=== PATIENT | female | born 1950 | race Caucasian/White ===

== ENCOUNTER 2017-01-29 09:15 | Day surgery (SDC) | payer MEDICARE ==
[~2017-01-29] VITALS: Ht 162.6 cm; Wt 70.8 kg
[~2017-01-29 09:15] MED LIST: BROMELAINS500 MG PO; CALCIUM 500 +1 EAC4 PO; CLARITIN10 M2 PO; CO Q-10100 MG PO; DOXYCYCLINE HY100 MG PO; EFFEXOR XR37.5 MG PO; FISH OIL 1,0001 EAC3 PO; FOLIC ACID1 MG PO; GARLIC1000 MG PO; GLUCOSAMINE CH1 EAC7 PO; HYDROCHLOROTHIA25 MG PO; KLOR-CON M2020 MEQ PO; LEVOTHYROXINE25 MCG PO; METHOTREXATE2.5 MG PO; MILLIPRED5 MG PO; NEURONTIN300 MG PO; OMEGA-3 FISH O1 EAC2 PO; PLAQUENIL200 MG PO; PRINIVIL5 MG PO; REFRESH OPTIVE1 EAC1 OPTH; RESTASIS1 DROP OP; TOBRADEX EYE DRO5 ML OPTH; VITAMIN C1000 MG PO; VITAMIN D32000 UNIT PO
== END 2017-01-29 11:27 | disposition home or self-care (01) ==
LOC: OPS 09:15 → DSVR 09:15 → DS 10:15 → OPS 11:27
PROC: 08RJ3JZ Replacement of Right Lens with Synthetic Substitute, Percutaneous Approach (ICD-10-PCS; principal; 2017-01-29)
DX: H25.11 Age-related nuclear cataract, right eye (principal); K21.9 Gastro-esophageal reflux disease without esophagitis; Z85.3 Personal history of malignant neoplasm of breast; Z90.49 Acquired absence of other specified parts of digestive tract; Z90.11 Acquired absence of right breast and nipple; Z90.710 Acquired absence of both cervix and uterus; Z98.890 Other specified postprocedural states; Z88.8 Allergy status to other drugs, medicaments and biological substances; Z79.899 Other long term (current) drug therapy
CPT/HCPCS: 140

== ENCOUNTER 2020-03-02 08:07 | Day surgery (SDC) | payer MEDICARE ==
[~2020-03-02] VITALS: Ht 162.6 cm; Wt 63.6 kg
--- NOTE | 2020-03-02 10:17 | NUR ---
03/02/20 1017 Ava Rodrigues 0957- PT TO PACU IN LL POSITION. EYES OPEN. PT DENIES PAIN OR NAUSEA. BREATHING EASY AND UNLABORED. SP02 >95% ON 2 L O2 VIA NC. PT ENCOURAGED TO TAKE DEEP BREATHS AND PASS GAS. 1006- PT AWAKENS EASILY TO VOICE. DENIES PAIN OR NAUSEA. PT STATES SHE WANTS TO CONTINUE TO LAY ON LEFT SIDE TO WORK ON PASSING GAS. VSS. O2 TITRATED DOWN TO ROOM AIR. 1015- PT CONTINUES TO SLEEP. VSS. BREATHING EASY AND UNLABORED.
--- NOTE | 2020-03-02 10:47 | OR ---
[facility] [address] [place], [place] [address] Signed DATE OF OPERATION: 03/02/2020 SURGEON: Dana Pacheco MD PREOPERATIVE DIAGNOSES: 1. Personal history of hyperplastic colonic polyps [place] [address] Hastings. 2. Personal history of adenomatous colonic polyps in [address] Maxwell. 3. A brother with colon cancer in his 60s. 4. Positive Cologuard test. POSTOPERATIVE DIAGNOSES: 1. A 5 mm polyp at 12 cm (distal sigmoid colon). 2. Moderate internal hemorrhoids and internal anal skin tags x2. PROCEDURE: Colonoscopy with snare polypectomy. ESTIMATED BLOOD LOSS: None. INDICATIONS: Ramez is a 69-year-old female, who was asked to see me for a colonoscopy. She had a colonoscopy in 2007 and [address] Hastings. She initially had hyperplastic colonic polyps removed and later had adenomatous colonic polyps removed. We know her brother was diagnosed and of colon cancer in his 60s. More recently, she had a positive Cologuard test. She was therefore asked to see me in followup by her primary care provider. I met with Ramez and her in the office. We had a long discussion regarding colonoscopy along with its risks including, but not limited to gas bloating, crampy abdominal pain, bleeding, perforation requiring surgery, and missed diagnosis. We also discussed the need for IV conscious sedation, she had expressed understanding and wished to proceed. PROCEDURE NOTE: Ramez was taken into our endoscopy suite and placed in the left lateral decubitus position. She uses methylprednisolone on as needed basis for her rheumatoid arthritis. However, her blood pressure was running low in the 80s, so we gave her 60 mg of Solu-Medrol IV. That brought the blood pressure up to 130s along with some IV fluids. She was then given a total of 8 mg of Versed and 100 mcg of fentanyl to cover the case. A digital rectal exam was performed and I could feel 2 internal anal skin tags. She had good sphincter tone. The adult colonoscope was introduced and advanced under direct Electronically Signed By: DANA PACHECO MD 03/02/20 1047 PATIENT NAME: RAMEZ FARLEY OPERATIVE REPORT DATE OF : 50 REPORT #: [id number] PHYSICIAN: DNAA PACHECO MD PCP: LUZ MARIA HARRELL MD REPORT IS CONFIDENTIAL AND NOT TO BE RELEASED WITHOUT AUTHORIZATION [facility] [address], [place] [address] Signed visualization of camera. She has a somewhat tortuous and angulated left colon. It took quite a bit of time and additional sedation and abdominal compression in order to advance the scope around and over the hepatic flexure. Hepatic flexure took quite a bit of time as it was quite angulated. Eventually, we were down into the cecum itself. We had to roll the right end into the supine position with additional sedation and abdominal compression. Fortunately, her prep was quite good. We could easily see the appendiceal orifice and the ileocecal valve. The scope was then slowly withdrawn. There was no diverticulosis. She had a 5 mm polyp in the distal sigmoid colon at 12 cm, just above the rectum. We easily divided that with the snare and suctioned it through the scope. We touched the base of that area with a hot biopsy forceps just for some cautery. However, there was really no significant bleeding. The rectum itself was unremarkable. Upon retroflexion of scope, she does have moderate internal hemorrhoids along with the two internal anal skin tags. After this, the gas was suctioned out and the colonoscope removed. Ramez tolerated the procedure quite well. RECOMMENDATIONS: I will see Ramez back in my office in 7 to 14 days to review her results. I suspect she will stay on the 5-year rotation for colonoscopies. She is very close to needing monitored anesthesia care with propofol. If she had any recollection of this last colonoscopy, she certainly should have propofol. Dana Pacheco MD ALB/MODL /[id number] cc: MD Dana Galvan MD Malcolm Townsley, MD Sophia Chang, MD [facility] Electronically Signed By: DANA PACHECO MD 03/02/20 1047 PATIENT NAME: RAMEZ FARLEY OPERATIVE REPORT DATE OF : 50 REPORT #: [id number] PHYSICIAN: DANA PACHECO MD PCP: LUZ MARIA HARRELL MD REPORT IS CONFIDENTIAL AND NOT TO BE RELEASED WITHOUT AUTHORIZATION [address] [address] Signed Copies: JERMAINE CESPEDES MD, ANDREW L MD TOWNSLEY, MALCOLM MD CHANG, SOPHIA MD ~ Electronically Signed By: DANA PACHECO MD 03/02/20 1047 PATIENT NAME: RAMEZ FARLEY OPERATIVE REPORT DATE OF : 50 REPORT #: [id number] PHYSICIAN: DANA PACHECO MD PCP: LUZ MARIA HARRELL MD REPORT IS CONFIDENTIAL AND NOT TO BE RELEASED WITHOUT AUTHORIZATION
--- NOTE | 2020-03-06 16:04 | PATH ---
[facility] [address] [place], [place] [address] Signed SPECIMEN(S): A DISTAL SIGMOID POLYP AT 12 CM SPECIMEN SOURCE: A. DISTAL SIGMOID POLYP AT 12 CM CLINICAL HISTORY: History polyps. DX: Internal hemorrhoids/colon polyp. Colonoscopy with possible biopsy and/or polypectomy. MICROSCOPIC DESCRIPTION: Histologic sections of all submitted blocks are examined by light microscopy. These findings, together with the gross examination, support the pathologic diagnosis. FINAL PATHOLOGIC DIAGNOSIS: Colon, distal sigmoid, polyp at 12 cm, polypectomy: - Tubular adenoma. - Negative for high-grade dysplasia or malignancy. NAL:cml:C2NR GROSS DESCRIPTION: The specimen, labeled "Ramez Farley, #1," and designated on the requisition "distal sigmoid polyp at 12 cm," is received in formalin and consists of one castillo soft tissue fragment that measures 0.7 cm in greatest dimension. The specimen is inked, bisected, and entirely submitted in cassette (A1). FB (under the direct supervision of a pathologist) The Gross Description was prepared using a voice recognition system. The report was reviewed for accuracy; however, sound-alike word errors, addition and/or deletions may occur. If there is any question about this report, please contact Client Services. PERFORMING LABORATORY: The technical component was performed by [facility], [address] [place] [id number] ([employer]: Amara Nichols MD; CLIA# [id number]). [facility] [address] [address] (CLIA# [id number]). Diagnostician: Roxann Prieto MD Pathologist Electronically Signed 03/06/2020 PATIENT NAME: RAMEZ FARLEY PATHOLOGY DATE OF : 50 REPORT #: [id number] PHYSICIAN: [facility] PCP: LUZ MARIA HARRELL MD REPORT IS CONFIDENTIAL AND NOT TO BE RELEASED WITHOUT AUTHORIZATION [address] [address] Signed Copies: ~ PATIENT NAME: RAMEZ FARLEY PATHOLOGY DATE OF : 50 REPORT #: [id number] PHYSICIAN: [facility] PCP: LUZ MARIA HARRELL MD REPORT IS CONFIDENTIAL AND NOT TO BE RELEASED WITHOUT AUTHORIZATION
== END 2020-03-02 10:50 | disposition home or self-care (01) ==
LOC: OPS 08:07 → DS 08:07 → OPS 08:15 → DS 09:00 → OPS 10:50
PROVIDERS: ATTEND Colon & Rectal Surgery
PROC: 0DBN8ZX Excision of Sigmoid Colon, Via Natural or Artificial Opening Endoscopic, Diagnostic (ICD-10-PCS; principal; 2020-03-02 08:15)
DX: D12.5 Benign neoplasm of sigmoid colon (principal); K64.8 Other hemorrhoids; K64.4 Residual hemorrhoidal skin tags; Q43.8 Other specified congenital malformations of intestine; K21.9 Gastro-esophageal reflux disease without esophagitis; I12.9 Hypertensive chronic kidney disease with stage 1 through stage 4 chronic kidney disease, or unspecified chronic kidney disease; N18.9 Chronic kidney disease, unspecified; E03.9 Hypothyroidism, unspecified; D63.1 Anemia in chronic kidney disease; E55.9 Vitamin D deficiency, unspecified; Z86.010 Personal history of colon polyps; Z80.0 Family history of malignant neoplasm of digestive organs; Z90.49 Acquired absence of other specified parts of digestive tract; Z79.899 Other long term (current) drug therapy; Z79.52 Long term (current) use of systemic steroids; Z79.890 Hormone replacement therapy; Z91.048 Other nonmedicinal substance allergy status
CPT/HCPCS: 88305; 99153; G0500; J2250; J2930; J3010; J7121

== ENCOUNTER 2023-12-25 21:21 | Emergency (ER) | payer MEDICARE ==
[~2023-12-25] VITALS: Ht 160 cm; Wt 46.7 kg
[~2023-12-25 21:21] MED LIST changes: +CREON DR 24,001 EACH PO; +MOTRIN IB200 MG PO; +ONDANSETRON ODT8 MG PO; +PERCOCET 7.5-31 EACH PO; +TRAMADOL HCL50 MG PO; +TYLENOL EXTRA500 M2 PO
[2023-12-25 21:38] LABS: BASOPHILS 0.9 % (0-2); EOSINOPHILS 0.7 % (0-6); HEMATOCRIT 39.2 % (35.0-50.0); HEMOGLOBIN 13.2 g/dL (12.0-18.0); LYMPHOCYTES 9.3 % (24-44); MCH 36.6 (27-36); MCHC 33.8 g/dl (30-36); MCV 108.4 fl (81-99); MONOCYTES 9.7 % (0-12); NEUTROPHILS 79.4 % (39-80); PLATELET COUNT 129 K/uL (140-440); RBC 3.61 M/ul (4.3-5.7); RDW 17.5 (10.5-15.0)
[2023-12-25] MEDS ORDERED: LORazepam 2 MG/ML VIAL IV ONE (21:45)
[2023-12-25] MEDS ORDERED: SODIUM CHLORIDE 0.9% 500 ML IV PRN (21:45)
[2023-12-25] MEDS ORDERED: LACTATED RINGER'S 1,000 ML IV ONE (21:45)
[2023-12-25 21:55] LABS: ALBUMIN 2.6 g/dL (3.4-5.0); ALBUMIN/GLOBULIN RATIO 0.87 (1.1-2.4); ALCOHOL, MEDICAL <3 ng/dL (<3); ALKALINE PHOSPHATASE 112 U/L (46-116); ALT (SGPT) 27 U/L (14-59); ANION GAP 13.3 (7-21); AST (SGOT) 41 U/L (15-37); BILIRUBIN, TOTAL 1.6 ng/dL (0.2-1.0); BUN/CREATININE RATIO 16.11 (6.0-28.6); CALCIUM 8.9 mg/dL (8.5-10.1); CARBON DIOXIDE 26 mmol/L (21-32); CHLORIDE 103 mmol/L (98-107); GLOMERULAR FILTRATION RATE,EST 29 mL/min (>60); POTASSIUM 3.3 mmol/L (3.5-5.1); PROTEIN, TOTAL 5.6 g/dL (6.4-8.2); UREA NITROGEN 29 mg/dL (7-18)
[2023-12-25 22:10] LABS: INR 1.34 (0.80-1.30); PROTIME 15.8 Sec (11.2-14.2)
[2023-12-25 22:11] LABS: BILIRUBIN, URINE NEGATIVE (negative); BLOOD/HGB, URINE NEGATIVE (Negative); KETONE, URINE NEGATIVE (Negative); LEUK ESTERASE, URINE NEGATIVE (negative); NITRITE, URINE NEGATIVE (negative); PH, URINE 5.5 (5-7)
[2023-12-25 22:16] LABS: CRYSTALS, URINE NONE SEEN (0-1+); EPITHELIAL CELLS, URINE SQUAMOUS 1+ /lpf (0-1+); RED BLOOD CELLS, URINE 0-1 /hpf (0-5)
[2023-12-25 22:17] LABS: BACTERIA, URINE 4+ /hpf (negative); CASTS, URINE NONE SEEN \\lpf; COLLECTION TYPE, URINE CLEAN CATCH; REFLEX CULTURE, URINE Yes (No)
[2023-12-25 22:25] LABS: AMPHETAMINES, URINE NEGATIVE (NEGATIVE); BARBITURATES, URINE NEGATIVE (NEGATIVE); BENZODIAZEPINE, URINE NEGATIVE (NEGATIVE); BUPRENORPHINE, URINE NEGATIVE (NEGATIVE); CANNABINOID, URINE NEGATIVE (NEGATIVE); COCAINE, URINE NEGATIVE (NEGATIVE); ECSTASY, URINE NEGATIVE (NEGATIVE); FENTANYL, URINE NEGATIVE (NEGATIVE); METHADONE, URINE NEGATIVE (NEGATIVE); OPIATES, URINE NEGATIVE (NEGATIVE); OXYCODONE, URINE NEGATIVE (NEGATIVE); PHENCYCLIDINE, URINE NEGATIVE (NEGATIVE)
[2023-12-25] MEDS ORDERED: CEFTRIAXONE/SODIUM CHLORIDE 1 GM/100 ML PIGGYBACK IV ONE (23:00)
[2023-12-25] MEDS ORDERED: LACTULOSE 20 GM/30 ML CUP PO ONE (23:00)
[2023-12-25] MEDS ORDERED: CEFDINIR300 MG PO (23:38)
[2023-12-25] MEDS ORDERED: LACTULOSE20 GM/30 M PO (23:38)
[2023-12-26 00:19] VITALS: BP 139/91
== END 2023-12-26 00:19 | disposition home or self-care (01) ==
LOC: ED 21:21
PROVIDERS: Family Medicine
DX: S16.1XXA Strain of muscle, fascia and tendon at neck level, initial encounter (principal); S00.81XA Abrasion of other part of head, initial encounter; S00.03XA Contusion of scalp, initial encounter; K76.82 Hepatic encephalopathy; N39.0 Urinary tract infection, site not specified; W19.XXXA Unspecified fall, initial encounter; Z92.21 Personal history of antineoplastic chemotherapy; Z85.3 Personal history of malignant neoplasm of breast; Z88.8 Allergy status to other drugs, medicaments and biological substances; Z91.048 Other nonmedicinal substance allergy status; Z79.01 Long term (current) use of anticoagulants; Z79.890 Hormone replacement therapy; Z79.891 Long term (current) use of opiate analgesic; Z79.899 Other long term (current) drug therapy
CPT/HCPCS: 36415; 70450; 70486; 72125; 80053; 80307; 81001; 82140; 83690; 85025; 85610; 87088; 96361; 96365; 99285-25; G0480; J0696; J7040